=== PATIENT | female | born 1990 | race Caucasian/White ===

== ENCOUNTER 2022-02-03 15:32 | Outpatient (CLI) | payer BC, SELFPAY ==
--- NOTE | 2022-02-03 15:50 | XR_ITS ---
WS: [id number] Left foot, 3 views, 02/03/2022 Clinical Data: NUMBNESS OF TOE Comparison: None. Findings: No fractures or dislocations are seen. No bone destruction or erosion is noted. The joint spaces and soft tissues are normal. XR/XR foot LT min 3V* [id number] Impression: Negative left foot.
== END 2022-02-03 15:33 | disposition home or self-care (01) ==
LOC: RAD 15:40
PROVIDERS: PCP Family Medicine; Visit Provider Family Medicine
DX: R20.0 Anesthesia of skin (principal)
CPT/HCPCS: 73630

== ENCOUNTER 2025-01-17 19:15 | Outpatient (CLI) | payer OTHER, SELFPAY ==
[2025-01-17 19:22] VITALS: BP 126/71; PULSE 81
[2025-01-17 19:36] VITALS: BP 121/70; PULSE 80
[2025-01-17 19:47] VITALS: BMI 26.4
[2025-01-17 19:51] VITALS: BP 113/64; PULSE 78
[2025-01-17 20:05] VITALS: BP 113/64; PULSE 83; RESP 17; TEMP 36.1; O2SAT 98
== END 2025-01-17 20:07 | disposition home or self-care (01) ==
LOC: OPOB 19:16 → OBGYN 19:17
PROVIDERS: PCP Family Medicine; Visit Provider Family Medicine
DX: O26.899 Other specified pregnancy related conditions, unspecified trimester (principal); Z3A.00 Weeks of gestation of pregnancy not specified; R25.2 Cramp and spasm
CPT/HCPCS: 59025; 99211

== ENCOUNTER 2025-04-08 07:00 | Inpatient (IN) | payer OTHER, SELFPAY ==
[2025-04-08] VITALS (127 sets, daily range): BP systolic 91–215; BP diastolic 52–97; PULSE 62–171; RESP 16; TEMP 37.1–37.8; O2SAT 96–100; BMI 29.7
[2025-04-08 07:02] LABS: Hematocrit 38.2 % (36-47); Hemoglobin 12.80 g/dL (11.27-16.99); Mean Corpuscular HGB Conc 33.5 g/dL (30-55); Mean Corpuscular Hemoglobin 27.8 pg (27-33); Mean Corpuscular Volume 82.9 fl (85-98); Nucleated Red Blood Cells % 0 %; Platelet Count 241 10^3/cmm (157-399); Red Blood Count 4.61 10^6/uL (3.85-5.65); White Blood Count 12.76 10^3/uL (3.29-11.43)
[2025-04-08] MEDS: ROPivacaine syringe 100 MG/50 ML SYRINGE 10 MG EPIDURAL ×4 (08:06→19:55)
--- NOTE | 2025-04-08 08:16 | ANES.PREANE2 ---
Pre-Anesthetic Assessment Height/Weight: Height 1.65 m Weight 81.193 kg Pulse Resp BP Pulse Ox O2 Del Method 71 16 123/71 98 Room Air 04/08/25 08:10 04/08/25 06:37 04/08/25 08:10 04/08/25 08:10 04/08/25 06:54 Preop Diagnosis: IUP Epidural Familial anesthetic complications: None Was Beta Kamran taken within 24 hours: N/A Was Clonidine taken within 24 hours: N/A Last intake: > Social No alcohol and No tobacco Exam alert, oriented x 3, clear to auscultation bilaterally and regular rate & rhythm Anesthetic Plan ASA status: 2 Anesthesia: Regional (specify below) Risk of > 500 ml blood loss (7ml/kg in children): Yes, adequate IV access and fluids planned Medications/Allergies Home Medications ?Medication ?Instructions ?Recorded ?Confirmed ?Last Taken ?Type vit no.95-ferrous 1 tab PO DAILY 01/17/25 04/08/25 Unknown History fumarate 28 mg-folic acid 800 mcg tablet () Allergies Allergy/AdvReac Type Severity Reaction Status Date / Time No Known Allergies Allergy Verified 01/17/25 20:13 Current Medications Generic Name Dose Route Start Last Admin Trade Name Freq PRN Reason Stop Dose Admin Dextrose/Lactated Ringer's 1,000 mls @ 125 mls/hr 04/08/25 06:45 04/08/25 08:07 Dextrose 5%-Lactated Ringers IV 125 mls/hr .Q8H SHU Administration Ropivacaine 100 mg in 50 mls @ 10 mls/hr 04/08/25 06:45 04/08/25 08:06 Naropin Syringe EPIDURAL 10 mls/hr .Q5H SHU Administration Sodium Chloride 1,000 mls @ 999 mls/hr 04/08/25 06:38 04/08/25 07:15 Sodium Chloride 0.9% IV 999 mls/hr .Q1H1M PRN Administration See label comments PFSH Anesthesia Female Reproductive History : 1 Data Anesthesia 04/08/25 06:50 Short CBC 04/08/25 Range/Units 06:50 WBC 12.76 H (3.29-11.43) 10^3/uL Hgb 12.80 (11.27-16.99) g/dL Hct 38.2 (36-47) % MCV 82.9 L (85-98) fl Plt Count 241 (157-399) 10^3/cmm Neut % (Auto) 78.2 % Neut # (Auto) 9.97 H (1.8-7.7) 10^3/uL Blood Bank 04/08/25 06:50 Blood Type B Positive Rho(D) Type Rh positive Antibody Screen Negative Anesthesia Procedures Epidural Time Out Performed: Yes Consents Signed: Procedure Consent Consent: requested by attending/covering physician, from patient, from other, risks and benefits reviewed and patient agrees to proceed Lumbar Level: L3-L4 Epidural position: sitting Epidural procedure: sterile prep of area, 1% lidocaine to numb the area, 18 g needle, negative for paresthesia passed, neg for paresthesia, test dose given, 1.5% xylocaine 1:200k epi (5), 0.2% Ropivacaine bolus ml (5), placed PCEA, no systemic response, sterile dressing applied, L.U.D. no apparent complications and 0.2% Ropiavacaine @ mls/hr (13) Additional Comments: MOHSEN at 5 cm, threaded to 11 cm
[2025-04-08] MEDS: ondansetron 2 mg/ML SDV 2 mL 4 MG IVP ×2 (09:22→16:51)
--- NOTE | 2025-04-08 17:22 | PM.OPHPUD ---
Labor & Delivery H&P Update Date of Procedure: April 08, 2025 Date H&P Performed: 04/07/25 Admission Diagnosis: IUP at 39 weeks 5 days gestation in active labor Planned procedure: Expectant management of labor and delivery
--- NOTE | 2025-04-08 20:30 | P.ANESUD_ITS ---
Pre-Anesthetic Update Pre-Anesthetic Assessment: Date of Surgery/Procedure: 04/11/25 Preop Kierra gnosis: IUP Proposed Procedure: Operation Date: 04/08/25 21:20 Proposed Procedures p Section(Not Applicable) - Mary Beth Esparza MD Any changes to Pre-Anesthetic Assessment?: No Labs Last 48hrs: Short CBC 04/09/25 Range/Units 12:30 WBC 17.01 H (3.29-11.43) 10^ 3/uL Hgb 10.30 L (11.27-16.99) g/ dL Hct 30.9 L (36-47) % MCV 84.9 L (85-98) fl Plt Count 191 (157-399) 10^3/c mm Vitals: Temperature 97.9 F 04/10/25 20:40 Temperature Source Oral 04/10/25 16:00 Pulse Rate 75 04/10/25 20:40 Pulse Rhythm Regular 04/08/25 06:54 Pulse Strength 3+ Normal 04/08/25 06:54 Respiratory Rate 17 04/10/25 20:40 Respiratory Effort Spontaneous, Non- Labored 04/10/25 08:00 Respiratory Depth Normal 04/10/25 08:00 Respiratory Patter n Normal 04/10/25 08:00 Blood Pressure 125/71 04/10/25 20:40 Blood Pressure Latasha n 87 04/10/25 16:00 Blood Pressure Pos ition Sitting 04/10/25 16:00 Pulse Oximetry 98 04/10/25 16:00 Oxygen Delivery Me thod Room Air 04/10/25 16:00 Exam: Pre-Anes Outpt Exam: alert, oriented x 3, clear to auscultation bilaterally and regular rate & rhythm Other Pertinent Information: Other Pertinent Information: to
[2025-04-08] MEDS: ceFAZolin 2,000 mg SDV 2000 MG IVP (20:45)
[2025-04-08] MEDS: metoclopramide 5 mg/mL SDV 2 mL 10 MG IV (20:45)
--- NOTE | 2025-04-08 22:20 | ANE.PACU2 ---
Inpatient post-anesthesia follow up: Airway intact: Yes Vital signs: Temperature 97.9 F Pulse Rate 75 Respiratory Rate 17 Blood Pressure 125/71 Pulse Oximetry 98 Oxygen Delivery Me thod Room Air Oxygen Flow Rate Fraction of Inspir ed Oxygen Hydration adequate: Yes Nausea and vomiting: No Pain level: 1 Mental status: Baseline Epidural Start/End: Epidural Start Date: 04/08/25 Epidural Start Time: 07:55 Epidural End Date: 04/08/25 Epidural End Time: 22:17
--- NOTE | 2025-04-08 22:23 | PM.OP ---
Operative Report Date of procedure: April 08, 2025 Pre-op diagnosis: Failure to descend Post-op diagnosis: Failure to descend hemorrhage Procedure done: Primary low-transverse section Via Pfannenstiel skin incision Specimens removed/disposition: Vertex female weight 3675 g, 8 pounds 2 ounces, Apgars 9 and 10 Surgeon: Mary Beth Esparza MD Estimated blood loss (mL): 600 Estimated blood loss: The patient had an additional 500 milliliters of blood loss due to uterine atony during the recovery phase. She was given 800 mcg of Cytotec rectally. IV fluids (mL): 1,800 Urine output (mL): 200 Complications: Very edematous intraperitoneal tissues Gross hematuria present prior to and during the procedure hemorrhage in the recovery phase Brief History: This is a 34-year-old G3, P0 at 39 weeks 3 days gestation who made it to complete complete, -1 station and pushing effectively without further descent of the 's head. Decision was made to proceed with primary section for failure to descend. Procedure: After informed consent the patient was taken to the OR where adequate epidural anesthesia was verified. She was prepped and draped in normal sterile fashion in dorsal supine position with a left lateral tilt. A Pfannenstiel skin incision was made and carried through to the underlying layer of fascia sharply. The fascia was then grasped with Honorio clamps and the underlying rectus muscles were dissected off taking care to avoid injury to the underlying tissue. The peritoneum was entered bluntly and the incision site was manually stretched. The vesicouterine peritoneum was quite edematous and was displaced inferiorly using the bladder blade. The vesicouterine peritoneum was then entered sharply using the Metzenbaums and the bladder flap was created digitally. The bladder blade was then reinserted. Uterine incision was made in a transverse fashion in the lower uterine segment. Amniotic rupture of membranes was performed digitally and a copious amount of thick meconium stained fluid poured out. Several attempts were made to deliver the infant's head but it was apparent that the rectus muscles were restricting so the Mayos were used to bisect a 1.5 cm portion of the left rectus muscle. Still there was some difficulty with delivery of the head so the surgical techs had to switch places. The second cartography/mapping technician was able to apply appropriate fundal pressure and the infant was delivered atraumatically with bulb suction of the mouth and naris at delivery. The cord was clamped and cut. The was handed to the waiting pediatric team. Cord blood was obtained. The placenta was delivered grossly intact using fundal pressure. It was normal to inspection but had meconium stained membranes. The uterus was then exteriorized from the abdomen. The lower uterine segment was very atonic and the inferior portion of the incision was grasped with ring forceps. The incision was then repaired using 0 chromic in a running locked fashion. A second layer of the same suture was used in an imbricating manner. Good hemostasis was obtained. The uterus was then returned to the abdomen. Irrigation was used to clear the gutters of clots and debris and the uterine incision was reinspected for hemostasis. At this time I checked the Ochoa catheter and noticed gross hematuria. Nurse Vanessa, nurse Karlene, and the FIRE SPRINKLER INSTALLER all stated that the gross hematuria was present upon vacating the patient's room and route to the OR. They verified that it appeared the same. I inspected the edematous vesicouterine tissues and palpated the Ochoa through the tissue deep on the left side. There were no obvious defects. The peritoneum was then reapproximated using 4-0 Vicryl in a running fashion. The rectus muscles were gently reapproximated using 4-0 Vicryl in a running fashion. The subfascial tissue was inspected for hemostasis. The fascia was then reapproximated using 0 Vicryl in a running fashion. The subcutaneous tissue was then irrigated. The subcutaneous tissue was reapproximated using 4-0 Vicryl in a running fashion. The skin was then reapproximated using 4-0 Vicryl in a running fashion on a James needle. Steri-Strips and a pressure bandage were applied and patient went to recovery in stable condition. Sponge instrument and needle counts were correct.
[2025-04-09] VITALS (22 sets, daily range): BP systolic 118–145; BP diastolic 62–90; PULSE 68–92; TEMP 36–37.8
[2025-04-09] MEDS: HYDROcodone-acetaminophen 5-325 mg Tablet PO ×3 (06:13→20:56)
[2025-04-09] MEDS: PRENATAL VIT NO.130/IRON/FOLIC 1 EACH TABLET PO (09:10)
[2025-04-09 12:39] LABS: Hematocrit 30.9 % (36-47); Hemoglobin 10.30 g/dL (11.27-16.99); Mean Corpuscular HGB Conc 33.3 g/dL (30-55); Mean Corpuscular Hemoglobin 28.3 pg (27-33); Mean Corpuscular Volume 84.9 fl (85-98); Platelet Count 191 10^3/cmm (157-399); Red Blood Count 3.64 10^6/uL (3.85-5.65); White Blood Count 17.01 10^3/uL (3.29-11.43)
--- NOTE | 2025-04-09 17:16 | P.PN_ITS ---
Subjective 2 Subjective: Postop day 1 doing well. She has not really been up and ambulating yet. Her pressure bandage is still in place. They remove the Ochoa catheter a couple hours ago. Her urine had cleared up overnight. Vitals/I&O/Wt Last Vital Signs Temp 98.0 F 04/09/25 14:53 Pulse 71 04/09/25 11:43 Resp 16 04/08/25 06:37 BP 118/66 04/09/25 11:43 Pulse Ox 100 04/08/25 22:42 O2 Del Method Room Air 04/08/25 06:54 04/09/25 04/09/25 04/09/25 06:59 14:59 22:59 Intake Total 600 / 1750 Output Total 3220 / 3420 600 / 600 450 / 1050 Balance -2620 / -1670 -600 / -600 -450 / -1050 Weight last 48 hrs Weight 81.193 kg Physical Exam 2 Narrative: Alert and oriented, sitting up in bed with , heart regular rate and rhythm, lungs clear to auscultation bilaterally, abdomen is soft with appropriate postoperative tenderness, positive bowel sounds, extremities have 1+ edema but no calf tenderness Urinary Catheter Management: Ochoa: Cath Placed During This Visit: yes, but has since been removed by the nurse Reason for Continuing Indwelling Catheter: Decision to DC Catheter Urinary Catheter Date of Insertion: 04/08/25 Urinary Catheter Time of Insertion: 09:03 Date Urinary Catheter Removed: 04/09/25 Time Urinary Catheter Discontinued: 15:30 Data 04/09/25 12:30 A&P Assessment and plan 1. Status post primary low transverse section: Continue routine postoperative care PDMP PDMP Reviewed: Not Reviewed Attestations 2 Medical Necessity Statement*: Routine postoperative and care Coding Level of Care Code Acute Code for Chg Fwd Diagnoses Status post primary low transverse section Z98.891
[2025-04-10] VITALS (8 sets, daily range): BP systolic 123–132; BP diastolic 70–76; PULSE 63–94; RESP 16–17; TEMP 36.1–36.7; O2SAT 98
[2025-04-10] MEDS: PRENATAL VIT NO.130/IRON/FOLIC 1 EACH TABLET PO (09:16)
[2025-04-10] MEDS: HYDROcodone-acetaminophen 5-325 mg Tablet PO ×3 (09:17→18:12)
[2025-04-10] MEDS: ferrous sulfate EC 325 mg Tablet PO (09:17)
--- NOTE | 2025-04-10 17:34 | CTR_ITS ---
PROCEDURE INFORMATION: Exam: CT Pelvis With Contrast Exam date and time: 04/10/2025 6:26 PM Age: 34 years old Clinical indication: Prior surgery; Surgery date: Post-operative (0-2 days); Surgery type: 04-08-25; Post surgery bladder possible leakage/ blood in urine TECHNIQUE: Imaging protocol: Computed tomography of the pelvis with contrast. 3D rendering (Not supervised by radiologist): MIP and/or 3D reconstructed images were created by the technologist. Radiation optimization: All CT scans at this facility use at least one of these dose optimization techniques: automated exposure control; mA and/or kV adjustment per patient size (includes targeted exams where dose is matched to clinical indication); or iterative reconstruction. Contrast material: OMNIPAQUE 350; Contrast volume: 100 ml; Contrast route: INTRAVENOUS (IV); COMPARISON: US OB >= 14 weeks fetus [id number] 11/21/2024 1:22 PM RADIATION DOSE METRICS: Total DLP (mGy-cm): 811.53 FINDINGS: Kidneys and ureters: Contrast is seen within the bilateral renal collecting systems, ureters, and urinary bladder. There is no evidence of extraluminal contrast leakage. There is mass effect upon the right ureter secondary to large heterogeneous and lobulated appearance of the uterus. Intestine: Moderate constipation. Appendix: No evidence of appendicitis. Intraperitoneal space: No intraperitoneal free air or fluid. Lymph nodes: Unremarkable. No enlarged lymph nodes. Reproductive: The uterus is heterogeneous and lobulated in appearance with a small amount of gas and fluid noted within the endometrial cavity. Urinary bladder: See Kidneys and ureters finding. Bones/joints: Unremarkable. No acute fracture. No dislocation. Soft tissues: Subcutaneous emphysema and soft tissue stranding noted involving the anterior and lateral pelvic wall. CT/CT pelvis w con* [id number] IMPRESSION: 1. Heterogeneous, lobulated and enlarged appearance of the uterus with secondary associated mass effect upon the right ureter without upstream hydronephrosis suggest nonocclusive mass effect. Findings are likely related appearance of the uterus. 2. Normal filling of the bilateral renal collecting systems, left ureter and urinary bladder without evidence of extraluminal contrast to suggest leak. 3. Subcutaneous emphysema and stranding noted within the anterior pelvic soft tissues. There is also gas and fluid noted within the endometrial canal. Findings likely reflect postsurgical changes.
[2025-04-10] MEDS: iohexol 350 mg/mL 500 mL Btl (per mL) IV (18:34)
--- NOTE | 2025-04-10 22:33 | PC.NURSE ---
Discharge education provided. RN answered questions and ensured patient had discharge paperwork.RN accompanied patient as she ambulated off the unit with her significant other and . RN ensured all personal belongings were taken.
--- NOTE | 2025-04-16 00:15 | PM.DCS ---
Discharge Providers Date of Admission: 04/08/25 07:00 Date of Discharge: April 10, 2025 Attending Provider at Admission: Mary Beth Esparza MD Attending Provider at Discharge: Mary Beth Esparza MD Primary Care Provider: Mary Beth Esparza MD Diagnoses at Discharge Discharge Diagnosis 1. Status post primary low transverse section: 2. Hematuria: Reason for Visit Reason for Visit: contractions Hospital Course Hospital Course This is a 34-year-old G3 now P1 who had a primary low-transverse section secondary to failure to descend. Prior to the OR she had hematuria likely from traumatic catheter insertion after pushing. on postop day #1 her hematuria had cleared and her catheter had been removed. Postop day 2 she was ambulating, tolerating a regular diet, had good pain control and increased urine output but mentioned a return of dark red blood in the urine. She underwent a CT cystogram which did not show any evidence of intraperitoneal contrast leakage. She was discharged home in stable condition Physical Exam Narrative: Alert and oriented, sitting up in bed, heart regular rate and rhythm, lungs clear to auscultation bilaterally, abdomen is soft with appropriate postoperative tenderness, incision is clean dry and intact with Steri-Strips in place, extremities have 1+ edema but no calf tenderness Urinary Catheter Management: Ochoa: Cath Placed During This Visit: yes, but has since been removed by the nurse Reason for Continuing Indwelling Catheter: Decision to DC Catheter Urinary Catheter Date of Insertion: 04/08/25 Urinary Catheter Time of Insertion: 09:03 Date Urinary Catheter Removed: 04/09/25 Time Urinary Catheter Discontinued: 15:30 Discharge Data Studies Completed and Pending Completed Studies During Hospitalization Category Date Time Status CT pelvis w con* [id number] Urgent Cat Scan 04/10/25 17:34 Completed Radiology Impressions Pelvis CT 04/10/25 17:34 IMPRESSION: 1. Heterogeneous, lobulated and enlarged appearance of the uterus with secondary associated mass effect upon the right ureter without upstream hydronephrosis suggest nonocclusive mass effect. Findings are likely related appearance of the uterus. 2. Normal filling of the bilateral renal collecting systems, left ureter and urinary bladder without evidence of extraluminal contrast to suggest leak. 3. Subcutaneous emphysema and stranding noted within the anterior pelvic soft tissues. There is also gas and fluid noted within the endometrial canal. Findings likely reflect postsurgical changes. Laboratory Results WBC 17.01 10^3/uL (3.29-11.43) H 04/09/25 12:30 RBC 3.64 10^6/uL (3.85-5.65) L 04/09/25 12:30 Hgb 10.30 g/dL (11.27-16.99) L 04/09/25 12:30 Hct 30.9 % (36-47) L 04/09/25 12:30 MCV 84.9 fl (85-98) L 04/09/25 12:30 MCH 28.3 pg (27-33) 04/09/25 12:30 MCHC 33.3 g/dL (30-55) 04/09/25 12:30 RDW 14.1 % (12.1-15.1) 04/09/25 12:30 Plt Count 191 10^3/cmm (157-399) 04/09/25 12:30 MPV 11.6 fL (7.4-10.4) H 04/09/25 12:30 Neut % (Auto) 78.2 % 04/08/25 06:50 Lymph % (Auto) 14.8 % 04/08/25 06:50 Converse % (Auto) 5.7 % 04/08/25 06:50 Eos % (Auto) 0.6 % 04/08/25 06:50 Baso % (Auto) 0.2 % 04/08/25 06:50 Neut # (Auto) 9.97 10^3/uL (1.8-7.7) H 04/08/25 06:50 Lymph # (Auto) 1.9 10^3/uL (0.8-4.8) 04/08/25 06:50 Converse # (Auto) 0.7 10^3/uL (0.2-0.9) 04/08/25 06:50 Eos # (Auto) 0.1 10^3/uL (0.0-0.8) 04/08/25 06:50 Baso # (Auto) 0.0 10^3/uL (0.0-0.1) 04/08/25 06:50 Nucleated RBC % (auto) 0 % 04/08/25 06:50 Nucleated RBCs # 0.0 /100WBC 04/08/25 06:50 Blood Type B Positive 04/08/25 06:50 Rho(D) Type Rh positive 04/08/25 06:50 Antibody Screen Negative 04/08/25 06:50 Vitals Last Vital Signs Temp 97.9 F 04/10/25 20:40 Pulse 75 04/10/25 20:40 Resp 17 04/10/25 20:40 BP 125/71 04/10/25 20:40 Pulse Ox 98 04/10/25 16:00 O2 Del Method Room Air 04/10/25 16:00 Discharge Plan Discharge Patient Disposition: Home Condition: Stable Prescriptions: New hydrocodone-acetaminophen 5-325 mg Tablet 1 - 2 tab PO Q4H Qty: 14 0RF docusate sodium 100 mg Capsule 100 mg PO BID Qty: 60 0RF ibuprofen 800 mg Tablet 800 mg PO TID PRN (Reason: Abdominal Discomfort) Qty: 40 0RF Continued PNV no.95-ferrous fumarate-FA [] 28 mg iron- 800 mcg Tablet 1 tab PO DAILY Discharge Order = DC NOW: Discharge Order (Routine); Ordered 04/10/25 Ordered By: Mary Beth Esparza Referrals: Mary Beth Esparza MD [Primary Care Provider, Family Practice] Discharge Diet: Regular Discharge Activity: Increase activity as tolerated Patient Instructions: Depression (DC), Bleeding (DC), Preeclampsia and Eclampsia After Delivery (GEN), Hemorrhage (DC), OB - Sherie/Isaias, OB Discharge Report, OB Food/Drug Interaction Guide, OB Care at Home, Opioid Safety, OB Home Care, Patient Portal & [facility] Instructions Activity Restrictions/Additional Instructions: Please make a follow up appointment for you and baby for April [address] Esparza's office. Discharge Attestations Time Spent in Discharge Care*: less than 30 min Quality Metrics Clinical Quality Measures [ No reported AMI, CVA or VTE this stay] Coding Level of Care Code Acute Code for Chg Fwd Diagnoses Status post primary low transverse section Z98.891 Hematuria R31.9
== END 2025-04-10 20:50 | disposition home or self-care (01) | DRG 787 ==
LOC: OPOB 15:39 → OBGYN 15:39
PROVIDERS: Admitting Provider Family Medicine; PCP Family Medicine; Visit Provider Family Medicine
PROC: 10D00Z1 Extraction of Products of Conception, Low, Open Approach (ICD-10-PCS; CPT 59514; principal; 2025-04-08 21:00)
DX: O32.4XX0 Maternal care for high head at term, not applicable or unspecified (principal); O72.1 Other immediate postpartum hemorrhage; O77.0 Labor and delivery complicated by meconium in amniotic fluid; Z3A.39 39 weeks gestation of pregnancy; Z37.0 Single live birth; R31.9 Hematuria, unspecified
CPT/HCPCS: 36415; 51702; 59025; 59409; 72193; 85025; 85027; 86850; 86900; 96374; 96376; 99211; J0690; J1885; J2405; J2765; J2795; J3490; J7030; J7121; J9999